=== PATIENT | male | born 1945 | race Caucasian/White ===

== ENCOUNTER 2018-05-04 06:34 | Day surgery (SDC) | payer MEDICARE, BC ==
--- NOTE | 2018-04-22 12:35 | HP ---
HISTORY AND PHYSICAL: DATE OF ADMISSION: 05/04/18 Coming into the hospital, 05/04/18, for left knee arthroscopic surgery. CHIEF COMPLAINT: Left knee anterior and medial pain. HISTORY OF PRESENT ILLNESS: This 72-year-old man who has been seen by Dr. Beckwith and myself and we have noted severe arthritis of the left patella. I recommended a total knee replacement in the patient. Because he had an acute injury a couple of months ago while lawn mowing on an incline, was wanting to have a lesser operation to try to relieve the anteromedial knee pain. We carefully discussed that arthroscopic surgery certainly might be helpful, but it might not be dramatically helpful and he understands this and wanted to proceed with a lesser procedure. He is cared for by Dr. Calix and he has seen Dr. Alvarez for preoperative clearance. A recent MIMA shows satisfactory LV size, slight mild limited function, and ejection fraction of 45%. The patient has coronary disease and he has been on Effient the last few years. The plan is for left knee arthroscopic surgery. PAST MEDICAL HISTORY: Past myocardial infarction, subendocardial type; right shoulder bursitis/tendinitis; and cardiomyopathy. Past medical history includes hypertension, coronary artery disease, arthritis. No DVT or pulmonary embolism , no atrial fibrillation, no pacemaker. No depression. No anemia. PAST SURGICAL HISTORY: Cardiac stent, 2016. MEDICATIONS: Daily meds include: 1. Aleve occasionally 1 tablet. 2. Atorvastatin 80 mg each day. 3. Aspirin 81 mg each day. 4. Effient 10 mg each day (this medication will be stopped on 04/26/18). 5. Coreg 12.5 mg each day. 6. Protonix 20 mg each day. 7. Lisinopril 10 mg each day. ALLERGIES: He is allergic AZITHROMYCIN. FAMILY HISTORY: Positive for diabetes. Negative for cardiac, cancer. SOCIAL HISTORY: Lives with his spouse. 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 No tobacco use. Fourteen alcoholic beverage drinks per week. He used to do regular exercise, golf, yard work, and biking. He has not been able to do his exercising recently because of this knee. He is left handed. REVIEW OF SYSTEMS: Negative for fevers and chills. No recent chest pain, palpitations, or shortness of breath. He has had some chronic neck pain and some easy bruisability with this at the end. PHYSICAL EXAMINATION GENERAL: He is well nourished and well developed, not acutely distressed. VITAL SIGNS: Height is 67 inches, weight 202 pounds, blood pressure 124/66, respirations 20, temperature 97 degrees. HEENT: NC/AT. LUNGS: Clear bilaterally. HEART: The heart is regular. S1 and S2 normal. No murmurs or gallops. ABDOMEN: Soft, nontender. There is organomegaly. EXTREMITIES: His walking gait is satisfactory. There is no marked limp. Squat is partial and does produce left anterior knee pain. The left knee has some tenderness around the patella. There is tenderness to the medial joint line. Extension is 0 degrees, flexion is 115. MCL and LCL are stable. The thigh and calf are soft. Neurovascularly, the foot is intact. NEUROLOGIC: Cranial nerves are grossly intact. IMPRESSION: Left knee medial meniscal tear. He also has severe patellar arthritis. PLAN/RECOMMENDATIONS: The plan is for left knee arthroscopic surgery. Goals, risks, complications, and expectations have been reviewed with the patient and his questions were answered. He will be stopping the Effient on 04/26/18. [id number]/[facility] #: [id number] MTDD
[~2018-05-04 06:34] MED LIST: Buffered Lidocaine 0.9% SYRIN* 5 ML/SYR SYRINGE INTRADERM ONE; Famotidine IV* 10 MG/ML 2 ML (20 mg) IV ONE
[2018-05-04] MEDS ORDERED: Famotidine IV* 10 MG/ML 2 ML (20 mg) ONE (07:01)
[2018-05-04] MEDS ORDERED: ceFAZolin 2 GM in NS PREMIX(*) 2 GM/100 ML BAG IVPB ONE (07:01)
[2018-05-04] MEDS ORDERED: Bupivacaine 0.5% SDV PF* 30ML VIAL ONE (07:03)
[2018-05-04] MEDS ORDERED: Midazolam* 1 MG/ML 5 ML VIAL (5 MG) ONE (07:33)
[2018-05-04] MEDS ORDERED: fentaNYL* 50 MCG/ML 2 ML VIAL (100 MCG VIAL) ONE ×2 (07:33→08:13)
[2018-05-04] MEDS ORDERED: Ketorolac INJ* 30 MG/ML 1 ML VIAL ONE (07:59)
[2018-05-04] MEDS ORDERED: Ondansetron INJ* 2 MG/ML VIAL ONE (07:59)
[2018-05-04] MEDS ORDERED: Propofol* 10 MG/ML 20 ML BTL IV PUSH ONE (07:59)
[2018-05-04] MEDS ORDERED: Dexamethasone IV* 4 MG/ML 1 ML (4 MG) ONE (07:59)
[2018-05-04] MEDS ORDERED: Lidocaine 2% PF * 5 ML VIAL ONE (07:59)
[2018-05-04] MEDS ORDERED: Bupivacaine 0.25% W/EPI* 10 ML SDV ONE (08:00)
[2018-05-04] MEDS ORDERED: DiMENhydriNATE IV* 50 MG/ML VIAL IV PUSH PRN (08:12)
[2018-05-04] MEDS ORDERED: Naloxone* 0.4 MG/ML 1 ML VIAL IV PRN (08:12)
[2018-05-04] MEDS ORDERED: oxyCODONE/Acetamin 5/325 MG* TAB PO PRN (08:12)
[2018-05-04] MEDS ORDERED: HYDROmorphone INJ1* 1 MG/ML SYRINGE IV PRN (08:12)
[2018-05-04] MEDS ORDERED: hydrALAZINE IV* 20 MG/ML VIAL ONE (08:33)
[2018-05-04] MEDS ORDERED: HYDROmorphone INJ1* 1 MG/ML SYRINGE ONE (08:48)
[2018-05-04 10:15] VITALS: BP 171/97
--- NOTE | 2018-05-05 00:39 | OP ---
DATE OF OPERATION: 05/04/18 - [facility] DATE OF : 43 SURGICAL CARE: Left knee. SURGEON: Eldon Mcnulty MD ENTRY LEVEL STAFF ACCOUNTANT: Shiela Anders, insulation technician. ANESTHESIOLOGIST: Holli Izaguirre MD. ANESTHESIA: LMA general. PRE-OP DIAGNOSES: Left knee medial meniscal tear and left knee arthritis. POST-OP DIAGNOSES: Left knee medial meniscal tear and left knee arthritis. OPERATIVE PROCEDURE: Left knee partial medial meniscectomy, limited synovectomy , and chondroplasties of lateral femoral condyle and the medial femoral condyle. COMPLICATIONS: No complications. DRAINS: No drains. BLOOD LOSS: 80 mL. REPLACEMENT: Crystalloid fluids. OPERATIVE INDICATIONS: Persistent pain, left knee following an injury this year. We had extensive discussion about knee replacement versus arthroscopic knee surgery on this arthritic knee. The patient understood and we thought knee replacement might be a better choice, but he wanted to proceed with a smaller operation. DESCRIPTION OF PROCEDURE: The patient was brought to the operating room and placed on the operating table in a supine position. Following the administration of the anesthetic, the left proximal thigh was wrapped with a tourniquet, the left leg was prepped from the tourniquet to the foot, and then prepped and draped free in the usual manner for arthroscopic surgery of the knee. The leg, ankle and foot portion was sealed off with an impermeable drape with a Vi-Drape wrapped around the calf with top of that. After prepping, draping and sealing off with our universal protocol time-out confirming Aníbal Keating and the plan for left knee arthroscopic surgery. We all agreed and we proceeded. The knee was aspirated and there was clear, straw colored synovial fluid with a slight debris. This was discarded. The leg was exsanguinated, the tourniquet elevated to 275. The knee was set up for arthroscopy with the arthroscope lateral to the patellar tendon, probe and operating instruments medial to the patellar tendon, and an inflow catheter superomedial to the patella. The knee was irrigated clear once again. The survey of the joint showed patellar arthritis, [id number], especially lateral compartment with osteophytes. There was synovitis, anterior inferior patella and lateral patella. The synovium was removed laterally and exposed the lateral retinaculum and synovium removed anteriorly where it was pedunculated and hanging into the joint. The medial and lateral gutters were clear. The lateral femoral condyle had quite extensive loose flap cartilage on the mid and the anterior and this was excised with a shaver. The lateral meniscus was in satisfactory condition. Lateral tibial plateaus, arthritic change, and no flaps of cartilage. There was osteophyte on the lateral femoral condyle. The medial femoral condyle also loose flap cartilage made anteriorly, this was excised with a shaver as well and the medial meniscus was torn up with a flap, mid meniscus and the flap was excised. The unstable meniscus removed posteriorly and anteriorly. The shaver was put in laterally to complete the synovectomy beneath the lateral retinaculum. I had to complete the anterior medial meniscectomy as well. Once the surgical care was completed, then photographs obtained and the knee was irrigated after deflating the tourniquet with another 4 L of saline irrigation solution, then I emptied, then instilled with Marcaine 0.25% with epinephrine 30 mL. The skin portal was closed with interrupted 3-0 Surgipro and a dressing was applied after washing and drying with Betadine-soaked release, sterile gauze, sterile Webril, cryotherapy cuff, ABD pads, and then a 6-inch Travis bandage loosely applied. Another part of the pathology on the knee was there was a loose fragment that was stocking in the synovium, just at the anterior aspect of the ACL insertion of the tibia. This was irregular and a cm in diameter, this was loosened and then grasped and removed. The patient was returned to the recovery room in stable and satisfactory condition having tolerated the procedure very well. [id number]/[facility] #: [id number] HERSON
== END 2018-05-04 10:30 | disposition home or self-care (01) ==
LOC: OR 06:34
PROVIDERS: ATTEND Orthopaedic Surgery
DX: S83.242A Other tear of medial meniscus, current injury, left knee, initial encounter (principal); M17.12 Unilateral primary osteoarthritis, left knee; I25.10 Atherosclerotic heart disease of native coronary artery without angina pectoris; I25.2 Old myocardial infarction; Z95.5 Presence of coronary angioplasty implant and graft; I42.9 Cardiomyopathy, unspecified; Z87.891 Personal history of nicotine dependence; X58.XXXA Exposure to other specified factors, initial encounter; Y92.9 Unspecified place or not applicable
CPT/HCPCS: 88304; J0360; J0690; J1100; J1170; J1885; J2250; J2405; J2704; J3010